=== PATIENT | female | born 1980 | race Caucasian/White ===

== ENCOUNTER 2016-11-05 08:32 | Emergency (ER) | payer BC, OTHER ==
[~2016-11-05 08:32] MED LIST: BIRTH CONTROL PILL; COMPAZINE10 M; COMPAZINE25 MG/SUPP; EFFEXOR75 MG; PHENERGAN25 MG PO; VISTARIL25 MG PO; XANAX0.5 MG
[2016-11-05] MEDS ORDERED: VITAMIN D31000 UNI3 PO (08:38)
[2016-11-05] MEDS ORDERED: PROZAC20 M3 PO (08:38)
[2016-11-05] MEDS ORDERED: XANAX0.5 M1 PO (08:38)
[2016-11-05] MEDS ORDERED: ADVIL200 M2 PO (08:39)
[2016-11-05 08:55] LABS: URINE APPEARANCE CLOUDY; URINE BILIRUBIN NEGATIVE (NEG); URINE BLOOD SMALL (NEG); URINE COLOR YELLOW; URINE GLUCOSE (UA) NEGATIVE (NEG); URINE KETONE SMALL (NEG); URINE LEUKOCYTE ESTERASE POSITIVE (NEG); URINE NITRITE NEGATIVE (NEG); URINE PROTEIN SMALL (NEG)
[2016-11-05 09:06] LABS: URINE BACTERIA 1+; URINE EPITHELIAL CELLS 25-30 /[HPF] (0-10)
[2016-11-05 09:36] LABS: CREATININE 0.67 mg/dl (0.50-1.10); eGFR VALUE FOR BLACK >90 mL/Min
[2016-11-05 09:39] LABS: PREGNANCY-SERUM NEGATIVE (NEGATIVE)
[2016-11-05 09:47] LABS: URINE BILIRUBIN NEGATIVE (NEG); URINE BLOOD NEGATIVE (NEG); URINE GLUCOSE (UA) NEGATIVE (NEG); URINE KETONE NEGATIVE (NEG); URINE LEUKOCYTE ESTERASE POSITIVE (NEG); URINE NITRITE NEGATIVE (NEG); URINE PROTEIN SMALL (NEG); URINE SPECIFIC GRAVITY 1.015 (1.003-1.030)
[2016-11-05 09:49] LABS: URINE APPEARANCE CLEAR; URINE COLOR YELLOW
[2016-11-05 09:58] LABS: URINE MUCUS 2+
[2016-11-05 10:01] LABS: URINE RBC 0-2 /[HPF] (0-5)
[2016-11-05 11:19] LABS: BASO % 0.7 % (0-2); EOS % 2.6 % (0-7); EOSINOPHIL ABSOLUTE COUNT 0.1 tho/cmm (0.0-0.7); HCT-HEMATOCRIT 41.6 % (34.0-49.0); HGB-HEMOGLOBIN 14.7 gm/dl (12.0-15.5); IMMATURE GRANULOCYTES ABSOLUTE 0.01 tho/cmm (0-0.03); IMMATURE GRANULOCYTES PERCENT 0.2 % (0-0.3); LYMPH % 26.2 % (20-45); LYMPH ABSOLUTE COUNT 1.4 tho/cmm (0.8-4.5); MCH (MEAN CORPUSCULAR HGB) 30.3 pg (28.0-32.0); MCHC MEAN CORPUSCULAR HGB CONC 35.3 % (32.0-36.0); MCV (MEAN CELL VOLUME) 85.8 fl (82.0-96.0); MEAN PLATELET VOLUME 11.3 cmc (9.4-12.4); MONO % 10.7 % (0-12); MONOCYTE ABSOLUTE COUNT 0.6 tho/cmm (0.0-1.2); NEUTROPHIL ABSOLUTE COUNT 3.2 tho/cmm (1.6-8.0); NEUTROPHIL-AUTOMATED 3.2 tho/cmm (1.6-8.0); NEUTROPHILS % 59.6 % (40-80); PLATELET COUNT 283 tho/cmm (150-450); RED BLOOD COUNT 4.85 mil/cmm (4.00-5.20); RED CELL DISTRIBUTION WIDTH 12.9 % (12.4-16.4); WHITE BLOOD COUNT 5.4 tho/cmm (4.0-10.0)
[2016-11-05 11:30] LABS: ALBUMIN 3.6 g/dl (3.5-5.0); ALKALINE PHOSPHATASE 86 U/L (33-138); ALT/SGPT 25 U/L (12-78); BILIRUBIN,TOTAL 0.4 mg/dl (0-1.5); BLOOD UREA NITROGEN 11 mg/dl (6-24); CALCIUM 8.7 mg/dl (8.5-10.5); CARBON DIOXIDE-VENOUS 22 mmol/L (22-32); CHLORIDE 110 mmol/l (96-110); CREATININE 0.73 mg/dl (0.50-1.10); GLUCOSE 78 mg/dL (70-110); LIPASE 134 U/L (73-393); SODIUM 142 mmol/L (135-145); eGFR VALUE FOR BLACK >90 mL/Min
[2016-11-05 11:33] LABS: ANION GAP 14 mmol/L (0-20); AST/SGOT 29 U/L (10-40); POTASSIUM 3.6 mmol/L (3.7-5.1)
[2016-11-05] MEDS ORDERED: NORCO 5-325 TA1 EACH PO (11:51)
== END 2016-11-05 12:02 ==
LOC: EDMED 08:32
PROVIDERS: Emergency Medicine
DX: R10.9 Unspecified abdominal pain (principal); M54.5 Low back pain; F17.200 Nicotine dependence, unspecified, uncomplicated; Z90.89 Acquired absence of other organs; Z90.49 Acquired absence of other specified parts of digestive tract
CPT/HCPCS: J1170; J1885; J2270; J2405; J7030